=== PATIENT | female | born 1990 | race Caucasian/White ===

== ENCOUNTER 2018-04-16 11:32 | Emergency (ER) | payer BC ==
[~2018-04-16] VITALS: Wt 109.5 kg
[2018-04-16 11:55] VITALS: BP 188/113; PULSE 106; RESP 20
[2018-04-16] MEDS ORDERED: PRED20TA PO (13:29)
[2018-04-16] MEDS ORDERED: HYDR-3029 PO (13:29)
[2018-04-16] MEDS ORDERED: ELIM TOP (13:29)
[2018-04-16] MEDS ORDERED: ONDA4TAB14 PO (13:30)
[2018-04-16] MEDS ORDERED: OSEL75CA23 PO (13:30)
[2018-04-16] MEDS ORDERED: ACET500C5 PO (13:30)
[2018-04-16] MEDS ORDERED: PROM6.2515 PO (13:30)
[2018-04-16] MEDS ORDERED: IBUP800T48 PO (13:30)
[2018-04-16] MEDS ORDERED: ACETAMINOPHEN 500 MG TAB PO STA (13:33)
--- NOTE | 2018-04-16 13:39 | ERD ---
ER Documentation Chief Complaint Chief Complaint cough, fever HPI 27-year-old female presents with cough and fever. Patient has had a dry cough and is feeling weak with body aches. Her mother had flu. Patient has not taken medication today and last took medication last night. She developed a fever yesterday. She has had no runny nose but discharge describes a dry cough with a sore throat times 2 days. Patient denies any vomiting. Denies changes in urination or bowel movement. Denies abdominal pain. Denies medical problems. NKDA. Surgical history denies. Social history smokes 4 cigarettes a day. LNMP March 31. ROS All systems reviewed and are negative except as per history of present illness. Medications Home Meds Active Scripts Promethazine Hcl* (Promethazine Hcl* Syrup) 6.25 Mg/5 Ml Syrup, 6.25 MG PO Q6H PRN for COUGH, #100 ML Prov:KRISTIN RINCON PA-C 04/16/18 Acetaminophen* (Tylophen*) 500 Mg Capsule, 1 CAP PO Q6H PRN for PAIN AND OR ELEVATED TEMP, #20 CAP Prov:KRISTIN RINCON PA-C 04/16/18 Ibuprofen* (Motrin*) 800 Mg Tab, 800 MG PO Q6, #30 TAB Prov:KRISTIN RINCON PA-C 04/16/18 Ondansetron (Ondansetron Odt) 4 Mg Tab.rapdis, 4 MG PO Q6H PRN for NAUSEA AND/OR VOMITING, #10 TAB Prov:KRISTIN RINCON PA-C 04/16/18 Oseltamivir Phosphate* (Tamiflu*) 75 Mg Capsule, 75 MG PO BID for 5 Days, CAP Prov:KRISTIN RINCON PA-C 04/16/18 Allergies Allergies: Coded Allergies: No Known Allergy (Unverified , 04/16/18) PMhx/Soc Medical and Surgical Hx: pt denies Medical Hx, pt denies Surgical Hx Hx Alcohol Use: No Hx Substance Use: No Hx Tobacco Use: No Smoking Status: Never smoker FmHx Family History: No diabetes, No coronary disease, No other Physical Exam Vitals Vital Signs Date Temp Pulse Resp B/P (MAP) Pulse Ox O2 O2 Flow FiO2 Time Delivery Rate 04/16/18 101.3 106 20 188/113 100 11:55 (138) Physical Exam GENERAL: The patient is well-appearing, well-nourished, in no acute distress HEENT: Atraumatic. Conjunctivae are pink. Pupils equal, round, and reactive to light. There is no scleral icterus. Tympanic membranes clear bilaterally. Oropharynx clear. NECK: C-spine is soft and supple. There is no meningismus. There is no cervical lymphadenopathy. CHEST: Clear to auscultation bilaterally. There are no rales, wheezes or rhonchi. HEART: Regular rate and rhythm. No murmurs, clicks, rubs or gallops. Results 24 hrs Laboratory Tests Test 04/16/18 13:35 Bedside Urine pH (LAB) 6.0 Bedside Urine Protein (LAB) 1+ Bedside Urine Glucose (UA) Negative Bedside Urine Ketones (LAB) 2+ Bedside Urine Blood 3+ Bedside Urine Nitrite (LAB) Negative Bedside Urine Leukocyte Esterase (L 1+ Current Medications Medications Dose Sig/Efren Start Time Status Last (Trade) Ordered Route PRN Stop Time Admin Dose Reason Admin 1,000 mg ONCE STAT 04/16/18 DC Acetaminophen PO 13:33 (Tylenol 04/16/18 13:34 Tab) Ibuprofen 800 mg ONCE ONCE 04/16/18 (Motrin) PO 14:00 04/16/18 14:01 Procedures/MDM ER course: Tylenol given ED. Urine does not show signs of infection and patient does not have urinary symptoms. MDM: 27-year-old female presenting with cough and fever. Patient symptoms are likely associated with influenza. I have low suspicion for urinary tract i nfection or pyelonephritis. I have low suspicion for bacterial [employer] infection or pneumonia. I have low suspicion for meningitis or sepsis. Patient will be discharged with supportive medications and told to follow-up with primary care within 1-2 days for close evaluation. Patient is told symptoms change or worsen to return immediately to the ER. All questions answered at discharge Departure Diagnosis: Primary Impression: Fever Additional Impression: Influenza Condition: Stable Patient Instructions: Fever Control (Adult), Influenza (Adult) Referrals: [facility] YOU HAVE RECEIVED A MEDICAL SCREENING EXAM AND THE RESULTS INDICATE THAT YOU DO NOT HAVE A CONDITION THAT REQUIRES URGENT TREATMENT IN THE EMERGENCY DEPARTMENT. FURTHER EVALUATION AND TREATMENT OF YOUR CONDITION CAN WAIT UNTIL YOU ARE SEEN IN YOUR DOCTORS OFFICE WITHIN THE NEXT 1-2 DAYS. IT IS YOUR RESPONSIBILITY TO MAKE AN APPOINTMENT FOR FOLOW-UP CARE. IF YOU HAVE A PRIMARY DOCTOR --you should call your primary doctor and schedule an appointment IF YOU DO NOT HAVE A PRIMARY DOCTOR YOU CAN CALL OUR PHYSICIAN REFERRAL HOTLINE AT IF YOU CAN NOT AFFORD TO SEE A PHYSICIAN YOU CAN CHOSE FROM THE FOLLOWING [facility] [address] [facility] [address] [facility] [address] [facility] [address] [facility] [address] [facility] [address] [facility]. [facility]. [address] Additional Instructions: FOLLOW UP WITH YOUR PRIMARY CARE PHYSICIAN TOMORROW.Return to this facility if you are not improving as expected. KRISTIN RINCON PA-C Apr 16, 2018 13:39
[2018-04-16] MEDS ORDERED: IBUPROFEN 800 MG TAB PO ONE (14:00)
== END 2018-04-16 13:57 | disposition home or self-care (01) ==
LOC: FTE 11:32
DX: J11.1 Influenza due to unidentified influenza virus with other respiratory manifestations (principal)
CPT/HCPCS: 81003; 81025; 99283; Z7610